=== PATIENT | female | born 1980 | race Two or more races ===

== ENCOUNTER 2023-09-27 06:26 | Day surgery (SDC) | payer OTHER ==
[2023-09-26 09:03] LABS: HEMOGLOBIN 12.6 g/dL (12.0-15.00); MEAN CELL VOLUME 79.2 fL (80.00-100.00); MEAN CORPUSCULAR HEMOGLOBIN 26.3 pg (27.00-32.0); MEAN CORPUSCULAR HGB CONC 33.2 g/dl (32.0-36.0); PLATELET COUNT 362 K/uL (150-450); RED BLOOD COUNT 4.79 M/uL (4.00-6.00); RED CELL DISTRIBUTION WIDTH 13.9 % (11.5-14.5)
[2023-09-26 09:04] LABS: PH,URINE 6.5 (5.0-8.0); URINE APPEARANCE Clear; URINE BILIRRUBIN Negative (NEGATIVE); URINE BLOOD Small; URINE COLOR Yellow; URINE GLUCOSE Negative (NEGATIVE); URINE LEUKOCYTE Trace; URINE NITRATE Negative; URINE PROTEIN Negative (NEGATIVE); URINE UROBILINOGEN 0.2 E.U./dl
[2023-09-26 09:05] LABS: URINE BACTERIA 922.1 uL (0.0-1933); URINE EPITHELIAL CELLS 12.3 uL (0.0-38.8); URINE RBC 17.4 uL (0.0-20.8); URINE WBC 19.6 uL (0.0-23.2)
[2023-09-26 09:27] LABS: INR 1.05; PARTIAL THROMBOPLASTIN TIME 29.3 SECONDS (22.0-34.0)
[2023-09-26 09:39] LABS: ALBUMIN 3.9 gm/dL (3.4-5.0); BILIRUBIN TOTAL 0.44 mg/dL (0.3-1.2); CALCIUM 9.4 mg/dL (8.5-10.1); CREATININE SERUM 0.64 mg/dL (0.55-1.02); GFR 100.35; GLOBULINA 3.2 G/DL (2.4-3.5); POTASSIUM 4.33 mEq/L (3.5-5.1); TOTAL PROTEIN 7.1 gm/dL (6.4-8.2)
[2023-09-27] MEDS ORDERED: CEFAZOLIN SODIUM 1,000 MG VIAL ONE (10:18)
[2023-09-27] MEDS ORDERED: CHLORHEXIDINE GLUCONATE 120 ML BOTTLE TOP ONE ×3 (14:12→16:15)
[2023-09-27] MEDS ORDERED: CEFAZOLIN SODIUM 1,000 MG VIAL IV ONE (15:00)
== END 2023-09-27 19:15 | disposition home or self-care (01) ==
LOC: CIR.AMB 06:26
PROVIDERS: ATTEND Surgery
DX: D24.2 Benign neoplasm of left breast (principal); D24.1 Benign neoplasm of right breast; R92.0 Mammographic microcalcification found on diagnostic imaging of breast; D48.61 Neoplasm of uncertain behavior of right breast; D48.62 Neoplasm of uncertain behavior of left breast